=== PATIENT | female | born 1940 | race Caucasian/White ===

== ENCOUNTER 2022-02-26 10:45 | Emergency (ER) | payer MEDICARE, BC ==
[2022-02-26] MEDS ORDERED: MORPHINE SULFATE 2 MG/ML SYRINGE IVP STA ×2 (11:14→15:50)
[2022-02-26 12:14] LABS: Basophils # (A) 0.1 k/uL (0-0.2); Basophils % (A) 1 %; Eosinophils # (A) 0.4 k/uL (0-0.7); Eosinophils % (A) 4 %; HCT 40.5 % (34.0-46.0); HGB 13.5 gm/dL (11.4-16.0); Lymphocytes # (A) 2.2 k/uL (1.0-4.8); Lymphocytes % (A) 19 %; MCH 29.7 pg (25.0-35.0); MCHC 33.4 g/dL (31.0-37.0); Mean Platelet Volume 8.3; Monocytes # (A) 0.7 k/uL (0-1.0); Monocytes % (A) 6 %; Neutrophils % (A) 69 %; Platelet Count 282 k/uL (150-450); RBC 4.55 m/uL (3.80-5.40); WBC 11.7 k/uL (3.8-10.6)
[2022-02-26 12:22] LABS: Albumin 4.2 g/dL (3.5-5.0); Calcium 9.5 mg/dL (8.4-10.2); Potassium 4.3 mmol/L (3.5-5.1); Total Bilirubin 0.8 mg/dL (0.2-1.3); Total Protein 7.4 g/dL (6.3-8.2)
[2022-02-26 12:25] LABS: INR 0.9 (<1.2); Partial Thromboplastin Time 23.8 sec (22.0-30.0); Prothrombin Time 10.1 sec (9.0-12.0)
--- NOTE | 2022-02-26 12:34 | XR ---
EXAMINATION TYPE: XR abdomen acute w cx DATE OF EXAM: 02/26/2022 COMPARISON: CT dated 05/31/2014 HISTORY: Abdominal pain TECHNIQUE: AP view of the abdomen with Supine and upright views of the abdomen are obtained. FINDINGS: Metallic density superimposed on the right lower lung zone, possibly related to the overlying chest w all/right breast, please correlate clinically. Slightly increased density of the lower lung zones lik spring due to the overlying breast shadows. Questionable minimal infiltration in the right mid to lower lung zones, please correlate clinically for possible underlying infection. Minimal left basal linear pulmonary atelectasis. No sizable pleural effusion or pneumothorax. No gross cardiomegaly. Dextroscol iosis of the lower thoracic spine. No free air under the diaphragm. No multiple air fluid levels or signs of acute high-grade small alisson l obstruction. No significant fecal loading of the colon. Levoscoliosis of the lumbar spine. Arterial atherosclerotic calcifications. Bilateral gluteal/upper thigh subcutaneous calcifications. Degenerat ilana changes of the lumbar spine. IMPRESSION: No evidence of free peritoneal air or signs of bowel obstruction. Incidental findings as described ab ove.
[2022-02-26] MEDS ORDERED: SODIUM CHLORIDE 0.9% 1,000 ML IV ONE (12:46)
[2022-02-26 12:53] LABS: Appearance,Urine Clear (Clear); Bilirubin,Urine Negative (Negative); Blood,Urine Negative (Negative); Color,Urine Yellow; Glucose,Urine (UA) Negative (Negative); Ketones,Urine Negative (Negative); Leukocyte Esterase,Urine Moderate (Negative); Mucus,Urine Rare /hpf; Nitrite,Urine Negative (Negative); PH, Urine 6.5 (5.0-8.0); Protein,Urine Negative (Negative); RBC,Urine 1 /hpf (0-5); Specific Gravity,Urine 1.016 (1.001-1.035); Squamous Epithelial Cell,Urine 1 /hpf (0-4); Urobilinogen,Urine <2.0 mg/dL (<2.0); WBC,Urine 6 /hpf (0-5)
--- NOTE | 2022-02-26 13:02 | ED ---
Abdominal Pain HPI - General Source: patient Mode of arrival: ambulatory Limitations: no limitations <Ninfa Vang - Last Filed: 02/26/22 19:30> <Yareli Dillon - Last Filed: 02/28/22 22:50> - General Chief Complaint: Abdominal Pain Stated Complaint: Abd pain Time Seen by Provider: 02/26/22 11:02 - History of Present Illness Initial Comments: Patient is an 81-year-old female presenting with chief complaint of left upper quadrant pain. Pain has been present since last night, it is a sharp pain that the patient describes as "right under my ribs". Pain is worse with deep breath. Patient has been taking Tylenol which has not affected the pain. Patient states that she has had loose stool today. Patient denies nausea, vomiting, chest pain, shortness of breath, headache, fever, chills, hematochezia, kathia temesis, hematuria, cough, hemoptysis, rash, palpitations, weakness. (Ninfa Vang) - Related Data Home Medications Medication Instructions Recorded Confirmed Aspirin [Adult Low Dose Aspirin EC] 81 mg PO DAILY 01/01/16 02/26/22 Calcium Carbonate/Vitamin D3 2 tab PO DAILY 01/01/16 02/26/22 [Calcium 600 + Vit D Tablet] Levothyroxine Sodium [Synthroid] 25 mcg PO DAILY 01/01/16 02/26/22 Losartan Potassium [Cozaar] 100 mg PO DAILY 01/01/16 02/26/22 Vit C/E/Zn/Coppr/Lutein/Zeaxan 2 cap PO DAILY 01/01/16 02/26/22 [Preservision Areds 2 Softgel] ALPRAZolam [Xanax] 0.25 mg PO BID PRN 02/26/22 02/26/22 Dicyclomine [Bentyl] 10 mg PO TID PRN 02/26/22 02/26/22 Lovastatin [Mevacor] 20 mg PO HS 02/26/22 02/26/22 Metoprolol Tartrate [Lopressor] 50 mg PO BID 02/26/22 02/26/22 Pantoprazole [Protonix] 40 mg PO DAILY 02/26/22 02/26/22 amLODIPine [Norvasc] 10 mg PO DAILY 02/26/22 02/26/22 hydroCHLOROthiazide [Hydrodiuril] 25 mg PO DAILY 02/26/22 02/26/22 Previous Rx's Medication Instructions Recorded Ciprofloxacin HCl [Cipro] 500 mg PO BID 10 Days #20 tab 02/26/22 metroNIDAZOLE [Flagyl] 500 mg PO TID 10 Days #30 tab 02/26/22 Allergies Allergy/AdvReac Type Severity Reaction Status Date / Time benzalkonium chloride Allergy skin juarez Verified 02/26/22 11:45 [From Merthiolate (benzalkonium)] codeine Allergy Nausea & Verified 02/26/22 11:45 Vomiting erythromycin base Allergy Abdominal Verified 02/26/22 11:45 Pain Iodinated Contrast Media Allergy Unknown Verified 02/26/22 11:45 [Iodinated Contrast Media - IV Dye] Iodine and Iodide Containing Allergy Unknown Verified 02/26/22 11:45 Produc Penicillins Allergy Anaphylaxis Verified 02/26/22 11:45 roflumilast [From Daliresp] Allergy Nausea & Verified 02/26/22 11:45 Vomiting Sulfa (Sulfonamide Allergy Unknown Verified 02/26/22 11:45 Antibiotics) clindamycin HCl AdvReac Nausea & Verified 02/26/22 11:45 [From Cleocin] Vomiting clindamycin palmitate HCl AdvReac Nausea & Verified 02/26/22 11:45 [From Cleocin] Vomiting clindamycin phosphate AdvReac Nausea & Verified 02/26/22 11:45 [From Cleocin] Vomiting montelukast sodium AdvReac loose Verified 02/26/22 11:45 [From Singulair] bowels steroids Allergy Itching Uncoded 02/26/22 10:54 Review of Systems ROS Other: All systems not noted in ROS Statement are negative. <Ninfa Vang - Last Filed: 02/26/22 19:30> ROS Other: All systems not noted in ROS Statement are negative. <Yareli Dillon - Last Filed: 02/28/22 22:50> ROS Statement: Those systems with pertinent positive or pertinent negative responses have been documented in the HPI. 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, breast biopsies, lt foot surgery with hardware Past Anesthesia/Blood Transfusion Reactions: No Reported Reaction Past Psychological History: No Psychological Hx Reported Smoking Status: Never smoker Past Alcohol Use History: None Reported Past Drug Use History: None Reported - Past Family History Mother Family Medical History: Coronary Artery Disease (CAD) Father Family Medical History: Cancer Additional Family Medical History / Comment(s): lung cancer <Ninfa Vang - Last Filed: 02/26/22 19:30> General Exam Limitations: no limitations General appearance: alert, in no apparent distress Head exam: Present: atraumatic, normocephalic, normal inspection Eye exam: Present: normal appearance, PERRL, EOMI. Absent: scleral icterus, c onjunctival injection, periorbital swelling Neck exam: Present: normal inspection Respiratory exam: Present: normal lung sounds bilaterally. Absent: respiratory distress, wheezes, rales, rhonchi, stridor Cardiovascular Exam: Present: regular rate, normal rhythm, normal heart sounds. Absent: systolic murmur, diastolic murmur, rubs, gallop, clicks GI/Abdominal exam: Present: soft, tenderness (Left upper quadrant), normal bowel sounds. Absent: distended, guarding, rebound, rigid Neurological exam: Present: alert, oriented X3, CN II-XII intact Psychiatric exam: Present: normal affect, normal mood Skin exam: Present: warm, dry, intact, normal color. Absent: rash <Ninfa Vang - Last Filed: 02/26/22 19:30> Course Vital Signs 02/26/22 02/26/22 02/26/22 10:54 13:24 16:34 Temperature 98.9 F 98.3 F 97.9 F Pulse Rate 59 L 67 70 Respiratory 16 14 14 Rate Blood Pressure 168/71 156/85 132/78 O2 Sat by Pulse 93 L 97 99 Oximetry Medical Decision Making - Lab Data Result diagrams: 02/26/22 12:09 02/26/22 12:09 - Radiology Data Radiology results: report reviewed (3 times) <Ninfa Vang - Last Filed: 02/26/22 19:30> - Lab Data Result diagrams: 02/26/22 12:09 02/26/22 12:09 <WilmaYareli Angelic - Last Filed: 02/28/22 22:50> - Medical Decision Making Patient is an 81-year-old female presenting with chief complaint of left upper quadrant pain. Pain has been present for 1 day, not relieved with Tylenol. Pain is not accompanied by nausea, vomiting, diarrhea, hematochezia. On exam there are normal bowel sounds in all 4 quadrants, tenderness in the left upper quadrant. Patient was given morphine 2 mg for pain control and 1 L normal saline fluid bolus. Lab work is remarkable for leukocytosis with WBC of 11.7. There is mild hyponatremia with sodium of 136. Troponin is negative and EKG shows no acute changes. There are moderate leukocytes on UA, no hematuria. On x-ray there is no evidence of free peritoneal air or signs of bowel obstruction. CT of the abdomen and pelvis without contrast shows Left-sided colonic diverticulosis. Exam is positive for acute diverticulitis at the splenic flexure of the colon with moderate localized inflammation. No abscess or free air. I discussed this case with my attending Dr. Dillon who agreed it would be appropriate to admit the patient for pain management and infection treatment. When I explained the plan to the patient she did not agree. I answered all the patient's questions and attempted to convince her to stay inpatient for pain management and treatment of the infection. I explained that she is much more likely to have the best outcome with admission today, and leaving today may result in complications or worsening of her condition. After extensive discussion the patient stated that she would still be going home today. I explained to the patient that this is not standard treatment for her condition and that she would need to sign out AMA. The patient agreed to sign out AMA. I prescribed the patient metronidazole 500 mg 3 times a day and ciprofloxacin 500 mg twice a day for 10 days. I instructed the patient to follow up with her primary care provider in the next 1-2 days. Follow-up with GI this week. Report back to ER with any worsening or new onset alarm symptoms, including but not limited to nausea, vomiting, diarrhea, blood in the stool, vomit or urine, chest pain, shortness of breath, fever, chills. (Ninfa Vang) I was available for consultation in the emergency department. The history and physical exam were done by the midlevel provider. I was consulted for this patients care. I reviewed the case with the midlevel provider and based on their presentation of the patient, I agree with the assessment, medical decision making and plan of care as documented. Chart was dictated using [employer] dictation software. Attempts were made to correct any dictation errors however some typographical errors may persist. (Yareli Dillon) - Lab Data Lab Results 02/26/22 02/26/22 02/26/22 Range/Units 12:09 12:09 12:09 WBC 11.7 H (3.8-10.6) k/uL RBC 4.55 (3.80-5.40) m/uL Hgb 13.5 (11.4-16.0) gm/dL Hct 40.5 (34.0-46.0) % MCV 89.0 (80.0-100.0) fL MCH 29.7 (25.0-35.0) pg MCHC 33.4 (31.0-37.0) g/dL RDW 14.0 (11.5-15.5) % Plt Count 282 (150-450) k/uL MPV 8.3 Neutrophils % 69 % Lymphocytes % 19 % Monocytes % 6 % Eosinophils % 4 % Basophils % 1 % Neutrophils # 8.0 H (1.3-7.7) k/uL Lymphocytes # 2.2 (1.0-4.8) k/uL Monocytes # 0.7 (0-1.0) k/uL Eosinophils # 0.4 (0-0.7) k/uL Basophils # 0.1 (0-0.2) k/uL PT 10.1 (9.0-12.0) sec INR 0.9 (<1.2) APTT 23.8 (22.0-30.0) sec Sodium 136 L (137-145) mmol/L Potassium 4.3 (3.5-5.1) mmol/L Chloride 103 (98-107) mmol/L Carbon Dioxide 23 (22-30) mmol/L Anion Gap 10 mmol/L BUN 27 H (7-17) mg/dL Creatinine 0.89 (0.52-1.04) mg/dL Est GFR (CKD-EPI)AfAm 70 (>60 ml/min/1.73 sqM) Est GFR (CKD-EPI)NonAf 61 (>60 ml/min/1.73 sqM) Glucose 115 H (74-99) mg/dL Plasma Lactic Acid Kirk (0.7-2.0) mmol/L Calcium 9.5 (8.4-10.2) mg/dL Total Bilirubin 0.8 (0.2-1.3) mg/dL AST 23 (14-36) U/L ALT 13 (4-34) U/L Alkaline Phosphatase 105 (38-126) U/L Troponin I (0.000-0.034) ng/mL Total Protein 7.4 (6.3-8.2) g/dL Albumin 4.2 (3.5-5.0) g/dL Amylase 83 (30-110) U/L Lipase 291 (23-300) U/L Urine Color Urine Appearance (Clear) Urine pH (5.0-8.0) Ur Specific [place] (1.001-1.035) Urine Protein (Negative) Urine Glucose (UA) (Negative) Urine Ketones (Negative) Urine Blood (Negative) Urine Nitrite (Negative) Urine Bilirubin (Negative) Urine Urobilinogen (<2.0) mg/dL Ur Leukocyte Esterase (Negative) Urine RBC (0-5) /hpf Urine WBC (0-5) /hpf Ur Squamous Epith Cells (0-4) /hpf Urine Mucus (None) /hpf 02/26/22 02/26/22 02/26/22 Range/Units 12:09 12:09 12:20 WBC (3.8-10.6) k/uL RBC (3.80-5.40) m/uL Hgb (11.4-16.0) gm/dL Hct (34.0-46.0) % MCV (80.0-100.0) fL MCH (25.0-35.0) pg MCHC (31.0-37.0) g/dL RDW (11.5-15.5) % Plt Count (150-450) k/uL MPV Neutrophils % % Lymphocytes % % Monocytes % % Eosinophils % % Basophils % % Neutrophils # (1.3-7.7) k/uL Lymphocytes # (1.0-4.8) k/uL Monocytes # (0-1.0) k/uL Eosinophils # (0-0.7) k/uL Basophils # (0-0.2) k/uL PT (9.0-12.0) sec INR (<1.2) APTT (22.0-30.0) sec Sodium (137-145) mmol/L Potassium (3.5-5.1) mmol/L Chloride (98-107) mmol/L Carbon Dioxide (22-30) mmol/L Anion Gap mmol/L BUN (7-17) mg/dL Creatinine (0.52-1.04) mg/dL Est GFR (CKD-EPI)AfAm (>60 ml/min/1.73 sqM) Est GFR (CKD-EPI)NonAf (>60 ml/min/1.73 sqM) Glucose (74-99) mg/dL Plasma Lactic Acid Kirk 1.3 (0.7-2.0) mmol/L Calcium (8.4-10.2) mg/dL Total Bilirubin (0.2-1.3) mg/dL AST (14-36) U/L ALT (4-34) U/L Alkaline Phosphatase (38-126) U/L Troponin I <0.012 (0.000-0.034) ng/mL Total Protein (6.3-8.2) g/dL Albumin (3.5-5.0) g/dL Amylase (30-110) U/L Lipase (23-300) U/L Urine Color Yellow Urine Appearance Clear (Clear) Urine pH 6.5 (5.0-8.0) Ur Specific [place] 1.016 (1.001-1.035) Urine Protein Negative (Negative) Urine Glucose (UA) Negative (Negative) Urine Ketones Negative (Negative) Urine Blood Negative (Negative) Urine Nitrite Negative (Negative) Urine Bilirubin Negative (Negative) Urine Urobilinogen <2.0 (<2.0) mg/dL Ur Leukocyte Esterase Moderate H (Negative) Urine RBC 1 (0-5) /hpf Urine WBC 6 H (0-5) /hpf Ur Squamous Epith Cells 1 (0-4) /hpf Urine Mucus Rare H (None) /hpf - Radiology Data Interpreted by me: On x-ray there is no evidence of free peritoneal air or signs of bowel obstruction. CT of the abdomen and pelvis without contrast shows Left-sided colonic diverticulosis. Exam is positive for acute diverticulitis at the splenic flexure of the colon with moderate localized inflammation. No abscess or free air. (Ninfa Vang) Disposition Is patient prescribed a controlled substance at d/c from ED?: No Time of Disposition: 16:52 <Ninfa Vang - Last Filed: 02/26/22 19:30> <Yareli Dillon - Last Filed: 02/28/22 22:50> Clinical Impression: Diverticulitis Disposition: HOME SELF-CARE Condition: Fair Instructions (If sedation given, give patient instructions): Diverticulitis (DC), Diverticulitis Diet (ED) Additional Instructions: You understand that this treatment is not the standard of care for your condition and have signed out AGAINST MEDICAL ADVICE. Take antibiotics as prescribed. Follow-up with primary care in 1-2 days. Follow-up with GI this week. Report back to ER if experiencing worsening symptoms or new onset alarm symptoms, including but not limited to fever, chills, nausea, vomiting, diarrhea, blood in the stool or vomit, increasing abdominal pain. Prescriptions: Ciprofloxacin HCl [Cipro] 500 mg PO BID 10 Days #20 tab metroNIDAZOLE [Flagyl] 500 mg PO TID 10 Days #30 tab Referrals: Sukumar Rivas MD [Primary Care Provider] - 1-2 days Bianca Holly MD [STAFF PHYSICIAN] - 1-2 days
[2022-02-26 13:28] VITALS: RESP 14
--- NOTE | 2022-02-26 15:31 | CT ---
EXAMINATION TYPE: CT abdomen pelvis wo con DATE OF EXAM: 02/26/2022 COMPARISON: 05/31/2014 HISTORY: 81-year-old female Left upper quadrant pain. CT DLP: 492.3 mGycm. Automated exposure control for dose reduction was used. TECHNIQUE: Contiguous axial scanning of the abdomen and pelvis without IV contrast. Coronal and sagit qing reconstructions performed. FINDINGS: Heart upper limits of normal in size. Trace anterior pericardial fluid. Mitral annular and coronary a rtery calcifications are present. Some scattered interstitial scarring and mild bronchiolectasis in t he lower lungs. Fat-containing left Bochdalek hernia again demonstrated. Moderate atherosclerotic calcifications abdominal aorta and common iliac arteries. There is fusiform ectasia infrarenal abdominal aorta to 2.8 cm versus 2.3 cm back in 2013. Liver enlarged measuring 21.4 cm, likely due to the presence of a Laz's lobe. No abnormal gallblad hayley function. There is a 2.5 cm diverticulum of the second portion of the duodenum projecting into th e pancreatic head region. Adrenal glands, spleen, and pancreas show no gross abnormality by noncontrast CT. 1.3 cm cortical cyst lateral right kidney. Extrarenal pelvis left kidney with a tiny cortical hypoden sity lateral lower pole left kidney measuring 7 mm likely a small cortical cyst. No dilated small bowel, free fluid, or free air. No mesenteric or retroperitoneal lymphadenopathy. Sc attered nonenlarged lower mesenteric lymph nodes measuring up to 5 mm. While the appendix is not discretely visualized, no secondary findings of acute appendicitis in the r ight lower quadrant. There is moderate stool within the cecum and lower ascending colon. Some diverticular change is present at the splenic flexure of the colon. There is moderate focal infl ammatory fat stranding centered in this region. No abnormal fluid collection. Additional more extensi ve diverticulosis mid to distal sigmoid colon. There is an ovoid density with central fat measuring 2 .8 x 1.6 cm along the distal sigmoid within the right side of the pelvis. This could represent some i nflammation of the epiploic appendage here. No abnormal fluid collection in the pelvis or pelvic lymphadenopathy. Bladder largely collapsed. Ther e is moderate circumference wall thickening that could represent chronic bladder wall hypertrophy. Mi ld pelvic floor relaxation. Uterus surgically absent. Neither ovary seen. Bones: Mild degenerative change at the hips. Degenerative levoconvex scoliosis. Grade 2 anterolisthes is L4-L5 secondary to severe hypertrophic facet arthropathy. Baastrup's disease. Additional grade 1 r etrolisthesis L1-L2. IMPRESSION: 1. Left-sided colonic diverticulosis. Exam is positive for acute diverticulitis at the splenic flexur e of the colon with moderate localized inflammation. No abscess or free air. 2. Correlate for any symptoms of potential epiploic appendagitis along the distal sigmoid within the right side of the pelvis. 3. Moderate circumferential bladder wall thickening could represent chronic bladder wall hypertrophy. Correlate to exclude cystitis.
[2022-02-26 16:37] VITALS: BP 132/78; PULSE 70; TEMP 97.9
[2022-02-26] MEDS ORDERED: metroNIDAZOLE 500 MG TAB PO STA (16:39)
[2022-02-26] MEDS ORDERED: CIPROFLOXACIN HCL 500 MG TAB PO STA (16:40)
== END 2022-02-27 06:42 | disposition home or self-care (01) ==
LOC: EC 10:45
DX: K57.92 Diverticulitis of intestine, part unspecified, without perforation or abscess without bleeding (principal); E87.1 Hypo-osmolality and hyponatremia; I10 Essential (primary) hypertension; J44.9 Chronic obstructive pulmonary disease, unspecified; E78.5 Hyperlipidemia, unspecified; K21.9 Gastro-esophageal reflux disease without esophagitis; Z79.82 Long term (current) use of aspirin; Z79.890 Hormone replacement therapy; Z79.899 Other long term (current) drug therapy
CPT/HCPCS: 36415; 93005; 80053; 82150; 83605; 83690; 84484; 85025; 85610; 85730; 81001; 74022; 74176; 99284; 96374; 96376; 96361; J2270